=== PATIENT | male | born 1975 | race Caucasian/White ===

== ENCOUNTER → 2022-03-19 08:56 | Outpatient (CLI) | payer BC, SELFPAY ==
--- NOTE | 2022-03-19 09:07 | DI.RAD_ITS ---
Exam(s) XR KNEE RT 3V AP,LAT,NILSA EXAM: XR KNEE RT 3V AP,LAT,NILSA CLINICAL HISTORY: RT KNEE PAIN, M25.561. TECHNIQUE: 2D digital imaging was performed. Three views. COMPARISON: No exams were available for comparison FINDINGS: BONES: No acute fracture is present. No bony destructive lesion is seen. JOINTS: Joint spaces are maintained. The knee is normally aligned. A small joint effusion is seen. SOFT TISSUE: Normal. IMPRESSION: Question of small joint effusion. DATA REPOSITORY: RADIATION DOSE DELIVERED:
--- OUTSIDE RECORDS SUMMARY | 2022-03-19 09:13 | XMS_ITS | Encounter Summary ---
:1975 Author Organization [facility] Address [address] [place] [address] Care Team Providers Name Role Phone Unknown, Provider Primary Care Provider Encounter Details Date Type Department Care Team Description 12/16/[address] [facility] Outr Resulting Lab, Pathology & Laboratory Provider [facility] [address] [place] [address] Social History Tobacco Use Types Packs/Day Years Used Date Smoking Tobacco: Never Assessed Sex Assigned at Date Recorded Not on file documented as of this encounter Plan of Treatment Not on filedocumented as of this encounter Procedures Procedure Name Priority Date/Time Associated Diagnosis Comme nts COVID-19 TEST [facility] Today 12/16/2019 9:43 EDT LAB PCR COVID-19 TESTING Routine 12/16/2019 9:43 EDT Resu lts for this procedure are i n the results section. documented in this encounter Results COVID-19 TEST [facility] LAB PCR (12/16/2019 9:43 EDT) Specimen Anatomical Location Collection Method Collection Time Received Time (Source) / Laterality / Volume Swab ENTIRE NASOPHARYNX 12/16/2019 9:43 2019 / Unknown EDT 14:53 EDT Provider Outr Resulting Lab MICROBIOLOGY - GENERAL ORD ERABLES Performing Organization Address City/State/ZIP Code Phon e Number [facility] [address] [place] [address] SERVICES COVID-19 TESTING (12/16/2019 9:43 EDT) Analysis Performed At Patho logist Time Signature COVID-19 Negative Negative 12/16/2019 [facility] rt-PCR Result 19:26 EDT [facility] Comment: This test has not been FDA cleared or ap proved. This test has been authorized by FDA under an EUA for use by authorized laboratories. This test has been authorized only for detection of nucleic acid fro m 2019-nCoV, not for any other viruses o r pathogens. This test is only authorized for the duration of the declaration that circumstances exist justifying the authorization of emergency use of in vitro d iagnostic tests for detection and/or gonzales gnosis of 2019-nCoV under section 564(b)(1) of Act, 21 U.S.C ?? 360bbb-3(b) (1), unless the authorization is terminated or revoked sooner. Negative results do not preclude 2019-nC oV infection and should not be used as the sole basis for treatment or other patient management decisions. Negative results must be combined with clinical observa tions, patient history, and epidemiologi lamar information. Performed on the [employer] Fusion instrument Performing Lab [place] [facility] 12/16/2019 19:[address] [facility] SERVICES Specimen Anatomical Collection Method Collection Time Receive d Time (Source) Location / / Volume Laterality Swab 12/16/2019 9:43 12/16/2019 EDT 14:53 EDT Provider Outr Resulting Lab MICROBIOLOGY - GENERAL ORD ERABLES Performing Organization Address City/State/ZIP Code Phon e Number [facility] [address] [place] [address] SERVICES documented in this encounter Visit Diagnoses Not on filedocumented in this encounter Care Teams Drug Abuse Counselor Relationship Specialty Start Date End Date Unknown, Provider, PCP - General 09/30/17 documented as of this encounter
--- OUTSIDE RECORDS SUMMARY | 2022-03-19 09:13 | XMS_ITS | Encounter Summary ---
:1975 Author Organization [facility] Address [address] [place] [address] Care Team Providers Name Role Phone Stew Delgado Primary Care Provider Reason for Visit Reason Comments Dermatitis Consultation (Routine) - Closed Specialty Diagnoses / Procedures Referred By Contact Refer red To Contact Dermatology Diagnoses rash bilateral lower extremities inflammatory dermatitis Stew Delgado PA [facility] Dermatology [address] [place] [address] [address] [place] [address] [place] [address] Fax: Referral ID Status Reason Start Date Expiration Date Visits V isits Requested Authorized [id number] Closed Consult, 12/11/2017 12/11/2018 1 1 [facility] Encounter Details Date Type Department Care Team Description 01/06/2018 Office Visit Dermatology at [facility] Moses Grimaldo MD Venous stasis [address] [facility] dermatitis, [address] [place] [address] HEAT laterality [phone] RD-DERMATOLOGY [place] [address] Social History Tobacco Use Types Packs/Day Years Used Date Smoking Tobacco: Former Smokeless Tobacco: Never Sex Assigned at Date Recorded Not on file documented as of this encounter Patient Instructions Patient InstructionsLisa Spann LPN - 01/06/2018 2:45 PM EDT Gentle Skin care Recommendations: - Only wash the dirty areas of your body with soap (armpits, groin, face, feet). Do not scrub with awashcloth, loofah or sponge, only use your hands. - Recommended soaps: Vanicream bar soap, CeraVe hydrating cleanser,Dove soap for sensitive skin. - It is important to moisturize daily. Apply a bland moisturizer to your whole body immediately after showering when your skin is still damp. - Recommended moisturizers: CeraVe cream, Vanicream moisturizer, Aveeno Eczema Therapy Cream or Eczema Therapy [place]. - Recommend a Free and Clear detergent such as ALL, Tide, 7th Generation. - Do not use dryer sheets or fabric softeners. Compression stockings 20-30 mhg daily documented in this encounter Progress Notes Moses Grimaldo - 01/06/2018 2:45 PM EDT Images from the original note were not included. DERMATOLOGY - NEW PATIENT NOTE Date of service: 01/06/2018 Adrian Feliciano : 1975, 42 y.o. Chief Complaint: Chief Complaint Patient presents with ??? Dermatitis HPI: Adrian Feliciano is a 42 y.o. male with consultation requested by Stew Delgado with the following concerns: He is here today with a rash on his lower extremities. He has been treating the area with Triamcinolone. He feels that it has improved over the last few weeks with the topical steroid. He does not moisturize, has not noticed any particular leg swelling. Itching is worse during the day, and when it is cold, not applying anything to the legs apart from the steroid. The rash was biopsied by PCP, demonstrating subacute spongiotic dermatitis with underlying prominent stasis dermatitis Relevant Skin History: - Okay to leave detailed message with results? yes - Skin cancer (including type): no Family History: Melanoma: no Relevant Social History: - - 2 boys. Non smoker since 2005 Meds: No current outpatient prescriptions on file. No current facility-administered medications for this visit. Allergies: Allergies not on file Review of Systems: - General: Feels well. - Skin: No other skin concerns. Examination: - Constitutional: Patient was alert, well-appearing and in no noticeable distress. - Skin: Skin examination of the bilateral lower extremities. Diagnosis/Skin findings/Assessment/Plan: 1. Venous Stasis Dermatitis - scaly pink plaques on anterior shins. MARKEL testing of the skin scraping was negative for fungal element -Rx: Augmented Betamethasone Dipropionate 0.05% ointment BID to affected areas of the shins. - Discussed risks of prolonged topical corticosteroid use including atrophy, striae, hypopigmentation, tachyphylaxsis. Instructed to avoid face, intertriginous, or other thin-skinned highly penetrable areas (eg, the perineum, axillae). - Compression stockings encouraged daily. Script given. RTC: In 2-3 months for f/u venous stasis, or sooner if needed. The following photos were obtained with patient consent: Note initiated by LISA SPANN LPN. I performed the above scribed service and agree with the accuracy of the documentation in this encounter. Reviewed and signed by Moses Grimaldo MD Resident in Dermatology [facility] Patient seen in conjunction with staff teacher emotionally impaired: Katie Huntley MD Section of Dermatology [facility] Katie Huntley MD - 01/06/2018 2:45 PM EDT I directly supervised Dr. Moses Grimaldo during this office visit. Dr. Grimaldo presented the history and physical exam to me. I then saw and examined this patient with Dr. Grimaldo. We reviewed the history and pertinent details and I confirmed the physical findings. I agree with the details of the history and physical exam as documented in Dr. Grimaldo's note. KATIE HUNTLEY MD Staff Physician documented in this encounter Plan of Treatment Not on filedocumented as of this encounter Visit Diagnoses Diagnosis Venous stasis dermatitis, unspecified la terality documented in this encounter Care Teams Oral And Maxillofacial Surgery Relationship Specialty Start Date End Date Stew Delgado PA PCP - General General Internal Medicine 01/06/[address] [place] [address] [place] [phone] documented as of this encounter
--- OUTSIDE RECORDS SUMMARY | 2022-03-19 09:13 | XMS_ITS | Clinical Summary ---
:1975 Author Organization [facility] [place] [address] Care Team Providers Name Role Phone Stew Delgado Primary Care Provider Medications Medication Sig Dispensed Refills Start Date End Date Status sertraline (ZOLOFT) 50 0 01/01/2018 Active mg Tablet triamcinolone (KENALOG) 0 09/30/2017 Active 0.1 % Ointment augmented betamethasone Apply to areas 50 g 1 01/06/2018 Active dipropionate of the rash on (DIPROLENE-AF) 0.05 % the legs twice Ointment daily for 14 days, take one week off and repeat as needed for itching. Social History Tobacco Use Types Packs/Day Years Used Date Smoking Tobacco: Former Smokeless Tobacco: Never Sex Assigned at Date Recorded Not on file Plan of Treatment Health Maintenance Due Date Last Done Comments Covid-19 Vaccine (#1) 03/23/1975 HIV screen 1992 Hepatitis C Screening 1992 Lipid Screening 1992 Tdap adult 1993 Tetanus vaccine 1993 Colonoscopy 09/21/2019 Influenza (Flu) vaccine (1 of - Influenza standard 01/02/2022 series) Care Teams Temporary Receptionist Relationship Specialty Start Date End Date Stew Delgado PA PCP - General General Internal Medicine 01/06/[address] [place] [address] [place] [phone]
--- OUTSIDE RECORDS SUMMARY | 2022-03-19 09:13 | XMS_ITS | Clinical Summary ---
:1975 Author Organization [facility] Address [address] [place] [address] Care Team Providers Name Role Phone Unknown, Provider Primary Care Provider Social History Tobacco Use Types Packs/Day Years Used Date Smoking Tobacco: Never Assessed Sex Assigned at Date Recorded Not on file Plan of Treatment Health Maintenance Due Date Last Done Comments Hepatitis C Screen 1975 COVID-19 Vaccine (#1) 03/23/1975 Care Teams Music Ministries Director Relationship Specialty Start Date End Date Unknown, Provider, PCP - General 09/30/17
--- OUTSIDE RECORDS SUMMARY | 2022-03-19 09:13 | XMS_ITS | Encounter Summary ---
:1975 Author Organization [facility] Address [address] [place] [address] Care Team Providers Name Role Phone Unknown, Provider Primary Care Provider Encounter Details Date Type Department Care Team Description 09/30/2017 Results Only [facility] Unknown, Provider, (Wo rk) Social History Tobacco Use Types Packs/Day Years Used Date Smoking Tobacco: Never Assessed Sex Assigned at Date Recorded Not on file documented as of this encounter Plan of Treatment Not on filedocumented as of this encounter Procedures Procedure Name Priority Date/Time Associated Diagnosis Comme nts SURGICAL PATHOLOGY Routine 09/30/2017 9:33 EDT Re sults for this procedure are i n the results section. documented in this encounter Results SURGICAL PATHOLOGY (09/30/2017 9:33 EDT) Component Value Ref Test Analysis Performed At [facility] Range Method Time Signature Pathology SURGICAL PATHOLOGY REPORT [facility] MEDICAL Report: Reports generated via electronic interface contain origina l data; CENTER however they are lacking the format of the original report. LABORATORY Caution should be taken when reading/interpreting unformat hemant reports. SERVICES Name: ? ADRIAN MONROE ? Accession #: ? [id number] ? : ? 1975 (Age: [age]) ??M ? Collect Date: ? 09/30/2017 ? Location: ? [facility] ? Receive Date: ? 09/30/2017 ? Provider: STEW EAGLE MD Copy to: ? Final Pathologic Diagnosis: SKIN OF LEG, ANTERIOR HURLEY, PUNCH BIOPSY: - Subacute spongiotic dermatitis in a background of promin ent venous stasis change. ??See microscopic and comment. Comment: The histologic findings show a mixed pic ture of epidermal reactive change with focal excoriation, mild epidermal hyperplasia, and mil d subacute spongiosis. The dermis shows venous stasis change with small vessel proliferation and red cell extravasation. ??Defini tive features of psoriasis are not identified. ??The findings are best interpreted as prominent venous stasis shaan nge with mild superimposed eczematous dermatitis. ??Clinical correlation i s recommended. Mucker Operator slides of this case were reviewed at intradep artmental consultation conference. ??(Dr. Almonte)/[facility] Microscopic Description: Sections reveal an irregular ly acanthotic epidermis with overlying parakeratosis and serum crust. ??Focal ulceration is noted. ??The ep idermis shows reactive change and mild spongiosis. ??Within the superfi cial dermis, there is a small vessel proliferation with some red cell extravasation and a mixed inflammatory infiltrate. ??Rare eosinophils are noted within the in terstitium. ??The deep dermis and subcutaneous tiss ue appear unremarkable. Multiple levels are obtained and a PAS stained section is performed and is negative for fungal organisms. (Dr. Almonte)/[facility] Document reviewed and electronically signed by: LEIDA ALMONTE MD Report ??Date: 10/05/2017 11:58 By the signature above, the attending physician certifies th at he/she has personally conducted a gross and/or microscopic examin ation of the described specimens and rendered or confirmed the above diagnosis. Specimen(s) Received: Not listed Clinical History: Slightly raised erythematous plaque over anterior thins bila terally, non-specific dermatitis Gross Description: ? Received in formalin labelled with proper patient identification (initials L, A) and not otherwise spec ified is a punch biopsy of hernandez-white skin (0.4 cm in diameter and 0.3 cm in thickness). Bisected and submitted in 1. Mihrab Ali 10/01/2017 10:11 AM End of Report Specimen Anatomical Collection Method Collection Time Receive d Time (Source) Location / / Volume Laterality 09/30/2017 9:33 09/30/2017 9 :33 EDT EDT Stew Eagle MD PATHOLOGY ORDERABLES Performing Organization Address City/State/ZIP Code Phon e Number [facility] [address] [place] [phone] SERVICES documented in this encounter Visit Diagnoses Not on filedocumented in this encounter Care Teams Airport Driver Relationship Specialty Start Date End Date Unknown, Provider, PCP - General 09/30/17 documented as of this encounter
== END ==
PROVIDERS: Visit Provider Physician Assistant
DX: M25.561 Pain in right knee (principal)
CPT/HCPCS: 73562

== ENCOUNTER 2022-08-06 11:26 | Day surgery (SDC) | payer BC, SELFPAY ==
[2022-08-06] VITALS (9 sets, daily range): BP systolic 83–146; BP diastolic 50–96; PULSE 83–89; RESP 14–126; TEMP 36.5–37; O2SAT 91–96; BMI 38.1
--- NOTE | 2022-08-06 12:13 | W.PREOPHP ---
Assessment and Plan Assessment and plan (1) Tear of medial meniscus of right knee: Status: Acute Assessment and plan: Adrian is a 46-year-old who has had ongoing pain about the right knee. This medial based pain has not responded to other nonoperative options an MRI confirmed to be meniscal tear. He does have some very mild arthritic changes in the medial side of the knee. However, given his young age and persistence of symptoms I have offered arthroscopic intervention. I reviewed this once again with him and his . I discussed the technical features of the case. I discussed potential risk to include bleeding, infection, pain, stiffness, worsening arthritis, retear, incomplete resection, blood clot, need for repeat procedures. Despite these risks, he elects to proceed. History of Present Illness History of Present Illness Chief Complaint: Right Medial Meniscus Tear Narrative: Adrian is an active 46-year-old who has had ongoing pain about the right knee. His pain is mostly in the medial aspect the knee. I saw him back in May with an evaluation of the right knee which was indicative of a medial meniscal tear. He underwent MRI which did reveal a displacement of meniscus tear. I called him with results of this MRI and given the failure of other nonoperative options he desired to proceed with arthroscopic intervention. He is here today for that procedure. He denies any changes to his health history. No recent sick contacts. No chest pain or shortness of breath. 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 Prehypertension Scrotal mass pt denies this, has mass in neck not scrotum Umbilical hernia Social History Smoking/Tobacco Use Status: Former Tobacco Use Quit Date: 05/04/05 Smoking risk assessment performed?: Yes Drug use: Daily Substance use type: marijuana Do you feel safe at home: Yes Do you feel safe in your relationship?: Yes Meds Allergies and Home Medications Allergies Allergy/AdvReac Type Severity Reaction Status Date / Time No Known Allergies Allergy Verified 08/06/22 12:00 Home Medications Medication Instructions Recorded Confirmed Type fluticasone propionate 50 1 spray intranasal BID 03/25/22 08/06/22 History mcg/actuation nasal spray,suspension (Children's Flonase Allergy Relief) venlafaxine 150 mg 150 mg PO DAILY 03/25/22 08/06/22 History capsule,extended release 24 hr Exam Const General: cooperative, healthy appearing, comfortable and no acute distress Resp Auscultation: clear to auscultation bilaterally Cardio Rate: regular rate Rhythm: regular rhythm Results Imaging Imaging Studies: MRI of the right knee was reviewed prior to this visit and once again discussed with Adrian. This shows some areas of mild chondromalacia with a very small focal area of bone marrow edema. However it is also associated with a complex medial meniscal tear with some extravasation of an inferior leaflet. ACL PCL is intact. No cartilage abnormalities in the lateral compartment or the patellofemoral space.
--- NOTE | 2022-08-06 12:27 | W.ANESPRE ---
General Info Date of Service Date Performed: 08/06/22 Height: 5 ft 6 in Weight: 107.2 kg Body Mass Index (BMI): 38.1 Surgical Procedure: Operation Date: 08/06/22 13:55 Proposed Procedure Side Surgeon p Knee Arthroscopy w/Partial Medial Menisectomy Right Paddy Phoenix MD Meds Allergies and Home Medications Allergies Allergy/AdvReac Type Severity Reaction Status Date / Time No Known Allergies Allergy Verified 08/06/22 12:00 Home Medication Medication Instructions Recorded fluticasone propionate 50 1 spray intranasal BID 03/25/22 mcg/actuation nasal spray,suspension (Children's Flonase Allergy Relief) venlafaxine 150 mg 150 mg PO DAILY 03/25/22 capsule,extended release 24 hr acetaminophen 500 mg tablet 1,000 mg PO TID #90 tabs 08/06/22 hydrocodone 5 mg-acetaminophen 325 1 tab PO Q6H PRN pain #12 tabs 08/06/22 mg tablet ibuprofen 600 mg tablet 600 mg PO TID PRN pain #90 tabs 08/06/22 Current Visit Medications: Current Medications Generic Name Dose Route Start Last Admin Trade Name Freq PRN Reason Stop Dose Admin Ringer's Solution 1,000 mls @ 80 mls/hr 08/06/22 06:00 IV 09/04/22 23:59 INFUSION RIAZ Cefazolin Sodium/Dextrose 2 gm in 50 mls @ 100 mls/hr 08/06/22 06:00 Ancef Duplex IVPB 09/04/22 23:59 PREOP RIAZ IV Miscellaneous Supplies 1 each 08/06/22 06:00 Iv Access IV 09/04/22 23:59 DIRECTED RIAZ Sodium Chloride 0 ml 08/06/22 06:00 Normal Saline Flush 10 Ml Syr IV 09/04/22 23:59 PRN PRN Sodium Chloride 0 ml 08/06/22 06:00 Normal Saline 10 Ml Vial IJ 09/04/22 23:59 DIRECTED PRN Sterile Water 0 ml 08/06/22 06:00 Water,Injection,Sterile 10 Ml Vial IJ 09/04/22 23:59 DIRECTED PRN PFSH Active Problems Active Problems: Problem Status Onset Code Prediabetes R73.03 Internal derangement of right knee M23.91 Tear of medial meniscus of right knee S83.241A Medical History Medical History Depression Impotence Neck mass pt reports 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 Prehypertension Scrotal mass pt denies this, has mass in neck not scrotum Umbilical hernia Tobacco Smoking/Tobacco Use Status: Former Tobacco Use Alcohol Alcohol Intake: current Alcohol intake frequency: 3 or more drinks per day Alcohol type: beer Substance Use Substance use: Daily Substance use type: marijuana Details: last alcohol consumption t-1 last marijuana use 08/06/22 inhaled Vital Signs and Lab Results Vital Signs Most Recent Vital Signs in EMR: Most Recent Vital Signs Temp Pulse Resp BP Pulse Ox 37.0 C 104 H 18 146/96 H 96 08/06/22 12:02 08/06/22 12:02 08/06/22 12:02 08/06/22 12:02 08/06/22 12:02 Lab Results Blood Type / Crossmatch: No Data to Display Complete Blood Count: No Data to Display Complete Metabolic Panel: No Data to Display Liver Function Panel: No Data to Display Coagulation Panel: No Data to Display Cardiac Panel: No Data to Display Arterial Blood Gas: No Data to Display Venous Blood Gas: No Data to Display Pancreas Panel: No Data to Display Thyroid Panel: No Data to Display Infectious Disease: No Data to Display Blood Cultures: No Data to Display Toxicology Panel: No Data to Display Anesthesia Assessment and Plan Anesthesia History Personal History: No History of Anesthesia Complications Family History: No Family History of Anesthesia Complications Exercise Tolerance Exercise Tolerance: Metabolic Equivalents>4 Cardiac & Pulmonary Exam Cardiac Exam: Normal S1/S2 Heart Sounds Pulmonary Exam: Clear Bilateral Breath Sounds Implantable Cardiac Device Does patient have a Pacemaker or an ICD?: No Airway Exam Known Difficult Airway: No Mallampati Class: 2 Mouth Opening: Normal (> 3cm) Thyromental Distance: Greater than 3 cm Neck Range of Motion: Full ROM Neck Circumference: Thick Teeth Condition: Normal Dentition ASA Classification ASA Score: ASA 2 Emergency Case?: No NPO Status NPO Status: NPO Clears >2 hours, Solids >8 hours Anesthesia Plan Resuscitation Status: Full Code Anesthesia Technique: General Anesthesia Airway Planned: LMA Monitors Used: Standard Monitors
[2022-08-06] MEDS: Lactated Ringers 1,000 ML 80 ML IV (12:38)
--- NOTE | 2022-08-06 12:39 | W.PM.DSUDISC ---
Date of service: 08/06/22 Time of Service: 12:39 Discharge Plan Disposition Patient Disposition: Home Condition: Good Discharge Details Reason For Visit: R knee arthroscopy Attending Provider: Paddy Phoenix Primary Care Provider: Stew Delgado Home Meds and New Rx's Prescriptions: New hydrocodone-acetaminophen 5-325 mg tablet 1 tab PO Q6H PRN (Reason: pain) Qty: 12 0RF acetaminophen 500 mg tablet 1,000 mg PO TID Qty: 90 0RF ibuprofen 600 mg tablet 600 mg PO TID PRN (Reason: pain) Qty: 90 0RF Continued fluticasone propionate [Children's Flonase Allergy Rlf] 50 mcg/actuation spray,suspension 1 spray intranasal BID Rx Instructions: administer into each nostril venlafaxine 150 mg capsule,extended release 24hr 150 mg PO DAILY Discharge Instructions Stand Alone Forms: [place] Knee Arthroscopy Equipment/Supplies: Partial Weight Bearing Crutches Activity:: Activity as Tolerated Remove Dressings/Wound Care:: 72 hours Shower/Bathe:: 72 hours Diet:: As Tolerated Discharge Orders Discharge Orders: Discharge Order (Routine); Ordered 08/06/22 Ordered By: Mainor Guzman DS: Diagnosis Discharge Diagnosis (1) Tear of medial meniscus of right knee: Status: Acute
[2022-08-06] MEDS: ceFAZolin 2 GM/50 ML BAG IVPB (13:09)
[2022-08-06] MEDS: Bupivacaine 0.5% Pres-Free 30 ML VIAL (13:52)
[2022-08-06] MEDS: EPINEPHrine 30 MG/30 ML VIAL (13:53)
--- NOTE | 2022-08-06 14:27 | W.ANESPOSTOP ---
Postoperative Evaluation Date, Time and Location Date Performed: 08/06/22 Time Performed: 14:27 Patient Location: PACU Vital Signs Most Recent Imported Vital Signs: Most Recent Vital Signs Temp Pulse Resp BP Pulse Ox 36.6 C 89 18 118/75 93 08/06/22 14:25 08/06/22 14:25 08/06/22 14:25 08/06/22 14:25 08/06/22 14:25 Pain Score Most Recent Pain Score: Most Recent Pain Score Pain Level 0 08/06/22 14:25 Assessment Mental Status: Arousable with meaningful communication Airway and Respiratory Function: Patent airway with normal (patient baseline) respiratory exam Cardiovascular Function: Hemodynamically Stable Hydration Status: Adequately Hydrated Nausea & Vomiting: No Nausea or Vomiting Pain: Pt. Denies Any Pain Peripheral Nerve Block: Patient did not receive a nerve block
[2022-08-06] MEDS: Albuterol 2.5 MG/3 ML INH SOLN VIAL UPD (15:32)
--- NOTE | 2022-08-06 17:04 | W.PM.OP ---
Date of service: 08/06/22 Time of Service: 13:45 Operative Note Operative Note DATE OF PROCEDURE: 08/06/22 PRE-OP DIAGNOSIS: Right knee medial meniscal tear, medial chondromalacia POST-OP DIAGNOSIS: same (Complex medial meniscal tear with loose fragments, unstable medial femoral cartilage flap) PROCEDURE: Right knee arthroscopic partial medial meniscectomy, medial femoral chondroplasty SURGEON: Paddy Phoenix ANESTHESIA TYPE: General LMA/ETT Refer to Anesthesia Record ESTIMATED BLOOD LOSS: 0 PATHOLOGY: none sent COMPLICATIONS: None Patient was transported to: PACU Patient's condition: stable Indications: I have seen Adrian in clinic for symptoms of a meniscus tear. This was confirmed based on MRI and exam findings. Nonoperative measures were exhausted but disability and pain persisted. I discussed knee arthroscopy with meniscal intervention with the patient. I reviewed the risks of the procedure to include, but not limited to, bleeding, infection, pain, stiffness, damage to nerves or vessels, recurrence, blood clot. Despite these risks, the patient elected to proceed. Findings: A diagnostic arthroscopy was performed with the following findings: Suprapatellar Pouch: No significant inflammation, No loose bodies Medial Compartment: Complex medial meniscal tear with multiple loose fragments, Intact meniscal root, medial cartilage flap with 2 to 3 mm of unstable edge, No loose bodies Notch: ACL and PCL were intact Lateral Compartment: No meniscal tear, Intact meniscal root, No significant chondromalacia or signs of arthritis, No loose bodies Patellofemoral Compartment: No significant chondromalacia, No apparent patellar maltracking Procedure Description: Adrian was greeted in the preoperative holding area where the correct side was identified and marked. The consent was reviewed with the patient and signed. The history and physical was updated. All questions were answered. He was taken back to the operating room. The patient was placed into the supine position on the operating room table. A nonsterile tourniquet was placed high onto the leg but not used. All bony prominences were well padded. Prophylactic antibiotics in the form of Cefazolin were administered. The right leg was then prepped with Chloraprep and draped in a standard fashion with stockinette and extremity drape. A timeout to confirm correct identity, side and site, procedure, allergies, anesthesia, and medical concerns was performed. The leg was placed into a pneumatic leg hickey, SPIDER2. A standard lateral portal was made at the lateral border of the patella tendon in line with the inferior pole of the patella, soft spot. The skin and deep tissue was incised sharply and the blunt trochar was inserted atraumatically. A diagnostic arthroscopy was performed and the findings are listed above. The suprapatellar pouch had no significant inflammatory change. The patellofemoral articulation showed no articular damage as well as good tracking. The lateral gutter had no loose bodies and the medial gutter had no loose bodies. The knee was brought into some valgus stress in extension to open the medial compartment. A medial portal was made, localized by a spinal needle. The portal was created with an #11 blade through skin and capsule under direct visualization avoiding any meniscal injury. A probe was then inserted into the medial compartment. The medial compartment was fully inspected. The chondral surface of the tibia showed no significant chondromalacia and the surface of the femur showed no significant chondromalacia but there was an apparent cartilage flap seen over the medial aspect of the femur slightly more posteriorly than anteriorly. This was probed and showed 2 to 3 mm of an unstable edge. The medial meniscus had obvious tearing with loose fragments. This had multiple fragments displaced from the body through the posterior horn and towards the root. The root was stable. After evaluation, the meniscus was debrided down to a stable base using a series of biters and arthroscopic rosanna. It was probed afterwards to confirm that the tear had been removed and the meniscus was stable. Cartilage surfaces were debrided of any flaps, leaving any intact fibers. The notch was then inspected which showed an intact ACL and an intact PCL. The leg was then brought into a figure of 4 position. The lateral compartment was fully inspected with the arthroscope and a probe. The chondral surface of the lateral femur showed no significant chondromalacia. The chondral surface of the lateral tibia showed no significant chondromalacia. The lateral meniscus had no meniscal tear. The arthroscope was brought back into the suprapatellar pouch and the leg was in full extension. The knee was thoroughly irrigated with the arthroscopic fluid on high flow and pressure. Inflow was stopped and excess fluid was removed. The wounds were closed with 4-0 Nylon. They were dressed with Xeroform, 4x4 gauze, ABD pad, Kerlix and an EMILI wrap. A cryo-cuff was applied. The patient tolerated the procedure well and was returned to the Same Day Surgery area in a stable condition suffering no known complication.
== END 2022-08-06 16:00 | disposition home or self-care (01) ==
PROVIDERS: PCP Physician Assistant; Visit Provider Student in an Organized Health Care Education/Training Program
PROC: (CPT 29870; principal; 2022-08-06 13:45)
DX: S83.241A Other tear of medial meniscus, current injury, right knee, initial encounter (principal); M23.41 Loose body in knee, right knee; X58.XXXA Exposure to other specified factors, initial encounter
CPT/HCPCS: 29881; J0690; J1100; J2405; J2704; J3010; J7613

== ENCOUNTER 2023-02-23 08:13 | Day surgery (SDC) | payer BC, SELFPAY ==
--- NOTE | 2023-02-22 19:32 | W.PM.DSUDISC ---
Date of service: 02/23/23 Time of Service: 10:42 Discharge Plan Disposition Patient Disposition: Home Condition: Good Discharge Details Reason For Visit: Screening colonoscopy Attending Provider: Javed Yañez Primary Care Provider: Stew Delgado Home Meds and New Rx's Prescriptions: Continued fluticasone propionate [Children's Flonase Allergy Rlf] 50 mcg/actuation spray,suspension 1 spray intranasal BID Rx Instructions: administer into each nostril venlafaxine 150 mg capsule,extended release 24hr 150 mg PO DAILY acetaminophen 500 mg tablet 1,000 mg PO TID Qty: 90 0RF ibuprofen 600 mg tablet 600 mg PO TID PRN (Reason: pain) Qty: 90 0RF Discontinued bisacodyl [Dulcolax (bisacodyl)] 5 mg tablet,delayed release (DR/EC) 5 mg PO ONCE Qty: 4 0RF Rx Instructions: Take per colonoscopy instructions provided by ordering providers office polyethylene glycol 3350 17 gram/dose powder 17 g PO ONCE Qty: 238 0RF Rx Instructions: Take per colonoscopy instructions provided by ordering providers office Discharge Instructions Additional Instructions: James, we were able to perform your colonoscopy today without any difficulty. I found and removed 4 discrete polyps. 2 of these were in your rectum, and the other 2 were in other portions of your large intestine. In addition to these findings, there are 2 other areas of abnormality within your large intestine. Honestly, I am not sure what is causing it. Some of the features seem consistent with lipoma, which is a benign (or nondangerous) condition. Other features are more consistent with chronic changes, or perhaps a polyposis syndrome. The 4 specific polyps that I removed will all be tested for better understanding of what is causing them. As soon as I get that information, I will share it with you. However, regardless of those pathology results, I do think that you will benefit from referral down to [facility] to meet with her instructional materials director for a second opinion. Unfortunately, I suspect that they will want to repeat your colonoscopy. I am sorry to put you through that discomfort, but I want to make sure we figure out the exact diagnosis, in order to get you all potential treatment options. I will place the referral to [facility] today, and asked that they schedule you as soon as possible. Please be on the look out for a call from them over the next few days to schedule the appointment. If you do not hear from them by the end of this week, please let me know. 1. If tolerated, consume a soft, low fiber diet for 1-2 days. 2[address] Do not drive, drink alcohol, operate machinery, make critical decisions, or do activities that require coordination or balance for 24 hours. 3. Because air was put into your colon during the procedure, expelling air from your rectum (passing gas or farting) is normal. 4. You may not have a bowel movement for 1-3 days because of the colonoscopy prep. This is normal. 5. Go directly to the emergency room if you notice any of the following: Develop chills (warm to touch), or if you have a thermometer and your temperature is above 101 Difficulty breathing or difficultly swallowing Persistent vomiting Severe abdominal pain, other than gas cramps Severe chest pain Black, tarry stools Any bleeding ? exceeding one tablespoon 6. Call your physician if the site where your intravenous was started becomes red, swollen, painful, and warm to touch. 7. Your physician has reviewed your pre-procedure medications. Please continue to take those medications as previously ordered. You will be given specific information/education regarding any changes to your medications before leaving. Stand Alone Forms: Anesthesia Discharge Inst., Darrius Mckeon (DSU) Activity:: Activity as Tolerated Diet:: As Tolerated Discharge Orders Discharge Orders: Discharge Order (Routine); Ordered 02/22/23 Ordered By: Javed Yañez DS: Diagnosis Discharge Diagnosis (1) Screen for colon cancer: Status: Acute Asessment and Plan: Follow-up on polypectomy results with referral to [facility]
--- NOTE | 2023-02-22 19:44 | COLE_ITS ---
Date of service: 02/23/23 Time of Service: 10:45 Colonoscopy Report Date of procedure: 02/23/23 Pre-op diagnosis general: Screening colonoscopy Post-op diagnosis procedure note: other (Colon and rectal polyps) Procedure: Colonoscopy with polypectomy Surgeon: Javed Yañez Anesthesia Type: General:No Airway Estimated blood loss (mL): 10 Pathology: other (Rectal polyps #1 and 2, ascending colon polyp, polyp from 65 cm) Complications: None Disposition: same day Indications: Adrian is 47 years old and he is here for his first screening colonoscopy Prep: Miralax/Dulcolax Procedure Start Time: 09:51 Procedure End Time: 10:19 Retraction Time: 18 Findings: 0.25 cm rectal polyp, 4 cm rectal polyp, 0.75 cm polyp in the ascending colon, 0.5 cm polyp at 65 cm from the anus. Two abnormal sections of colon. One extending from about 40 cm to 55 cm, 1 extending from about 70 cm to 80 cm Procedure Description: After the induction of monitored anesthetic care, and with the patient in left lateral decubitus position, I began by performing an external anorectal exam.? Perineum and skin were normal, as was the anal verge.? There was no evidence of external hemorrhoids.? Next, I performed a digital rectal exam.? I did not appreciate any abnormal findings.? Next, I advanced a colonoscope into the rectal vault.? I performed retroflexion.? This appeared normal.? I returned the scope to the forward position, and several centimeters up from the anal verge was a large pedunculated, erythematous and slightly friable rectal polyp. I removed this with energized snare polypectomy. There was minimal bleeding. Given the appearance of the lesion, I did tattoo the sub-mucosa. Several centimeters away was a 0.25 cm sessile polyp. I removed this with snare polypectomy as well. Using insufflation, I then advanced the colonoscope beyond the rectal folds and into the sigmoid colon before advancing towards the cecum.? Approximately 40 cm from the anal verge was an abnormal section of colon. There were multiple areas of tissue that appeared consistent with polyps, as well as some pseudopolyps. However, the pseudopolyp appearance was quite large. The overlying mucosa was generally normal-appearing, and gave almost the appearance of a lipoma, however, the surrounded the entirety of the colon for approximately 15 cm of the length. This pathologic segment extended from about 40 cm to about 55 cm from the anal verge. There was then a small section of normal-appearing colon before another abnormal portion. Again, there were appearance of almost submucosal lumps ranging in size from about 0.75 cm to 2 to 3 cm. This section was a bit more linear. This extended up to the area of the splenic flexure which appeared normal.? The scope was advanced to and noted to be in the cecum by identification of the ileocecal valve and appendiceal orifice.? I then began withdrawing the colonoscope using repeated irrigation as necessary for full evaluation of the colonic mucosa. ?Within the ascending colon was a 0.75 cm pedunculated polyp. This was removed with energized snare polypectomy. The hepatic flexure and transverse colon, as well as the splenic flexure appeared normal. Again noted was the abnormal portion of colon from about 70 to 80 cm. A separate discrete polyp was found at 65 cm within an area of normal-appearing colonic mucosa. This polyp was about 0.5 cm and pedunculated. This was also removed with energized snare polypectomy. Again, the camera was brought through the abnormal portion of colon beginning around 55 cm from the anal verge. Although there was some portions of this tissue that did appear consistent with traditional adenomatous polyps, these were not removed because of the surrounding features. Once the scope was withdrawn to the level of the rectum, great care was taken to examine portions of the rectal folds.? No other abnormalities were detected. Finally, the scope was withdrawn and the patient was brought to the same-day surgery recovery unit as the anesthetic wore off. ? The findings and instructions were shared with the patient prior to discharge.
[2023-02-23 08:42] VITALS: BP 127/83; PULSE 88; RESP 20; TEMP 36.6; O2SAT 97
[2023-02-23] MEDS: Lactated Ringers 1,000 ML 80 ML IV (09:00)
--- NOTE | 2023-02-23 09:07 | W.ANESPRE ---
General Info Date of Service Date Performed: 02/23/23 Height: 5 ft 6 in Weight: 96.2 kg Body Mass Index (BMI): 34.2 Surgical Procedure: Operation Date: 02/23/23 10:35 Proposed Procedure Side Surgeon franklin Yañez MD Meds Allergies and Home Medications Allergies Allergy/AdvReac Type Severity Reaction Status Date / Time No Known Allergies Allergy Verified 02/23/23 08:37 Home Medication Medication Instructions Recorded fluticasone propionate 50 1 spray intranasal BID 03/25/22 mcg/actuation nasal spray,suspension (Children's Flonase Allergy Relief) venlafaxine 150 mg 150 mg PO DAILY 03/25/22 capsule,extended release 24 hr acetaminophen 500 mg tablet 1,000 mg (2 x 500 mg) PO TID #90 08/06/22 tabs ibuprofen 600 mg tablet 600 mg PO TID PRN pain #90 tabs 08/06/22 Current Visit Medications: Current Medications Generic Name Dose Route Start Last Admin Trade Name Freq PRN Reason Stop Dose Admin Hyoscyamine Sulfate 0.125 mg 02/22/23 19:45 Hyoscyamine 0.125 Mg Sl/Oral/Chew SL 03/24/23 19:44 DIRECTED PRN Ringer's Solution 1,000 mls @ 80 mls/hr 02/23/23 06:00 02/23/23 09:00 IV 03/22/23 23:59 80 mls/hr INFUSION RIAZ Administration IV Miscellaneous Supplies 1 each 02/23/23 06:00 Iv Access IV 03/22/23 23:59 DIRECTED RIAZ Ondansetron HCl 4 mg 02/22/23 19:45 Ondansetron 4 Mg/2 Ml Vial IVP 03/24/23 19:44 Q4H PRN PRN Nausea / Vomiting Sodium Chloride 0 ml 02/23/23 06:00 Normal Saline Flush 10 Ml Syr IV 03/22/23 23:59 PRN PRN Sodium Chloride 0 ml 02/23/23 06:00 Normal Saline 10 Ml Vial IJ 03/22/23 23:59 DIRECTED PRN Sterile Water 0 ml 02/23/23 06:00 Water,Injection,Sterile 10 Ml Vial IJ 03/22/23 23:59 DIRECTED PRN PFSH Active Problems Active Problems: Problem Status Onset Code Screen for colon cancer Z12.11 Status post arthroscopy of right knee Z98.890 Prediabetes R73.03 Internal derangement of right knee M23.91 Tear of medial meniscus of right knee S83.241A Medical History Medical History (Updated 02/23/23 @ 08:39 by Jojo Bernal) Family history of colon cancer sister Overweight Neck mass 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 first he has heard of this Medical History Comments:: Pt. states I'm hard to put out Surgical History Surgical History (Updated 02/23/23 @ 08:40 by Jojo Bernal) Hx of arthroscopy of knee R knee H/O wisdom tooth extraction History of appendectomy 07/2012 History of ankle surgery R ankle, tendon work 04/25/19 Tobacco Smoking/Tobacco Use Status: Former Tobacco Use Alcohol Alcohol Intake: current Alcohol intake frequency: 3 or more drinks per day Alcohol type: beer Substance Use Substance use: Daily Substance use type: marijuana Details: alcohol: t-1, 3 beers, marijuana: t, couple puffs Vital Signs and Lab Results Vital Signs Most Recent Vital Signs in EMR: Most Recent Vital Signs Temp Pulse Resp BP Pulse Ox 36.6 C 88 20 127/83 97 02/23/23 08:42 02/23/23 08:42 02/23/23 08:42 02/23/23 08:42 02/23/23 08:42 Lab Results Blood Type / Crossmatch: No Data to Display Complete Blood Count: No Data to Display Complete Metabolic Panel: No Data to Display Liver Function Panel: No Data to Display Coagulation Panel: No Data to Display Cardiac Panel: No Data to Display Arterial Blood Gas: No Data to Display Venous Blood Gas: No Data to Display Pancreas Panel: No Data to Display Thyroid Panel: No Data to Display Infectious Disease: No Data to Display Blood Cultures: No Data to Display Toxicology Panel: No Data to Display Anesthesia Assessment and Plan Anesthesia History Personal History: No History of Anesthesia Complications Family History: No Family History of Anesthesia Complications Exercise Tolerance Exercise Tolerance: Metabolic Equivalents>4 Pertinent Negatives Pertinent Negatives: No Symptoms of GERD, No Major Cardiovascular Symptoms or Complaints and No Major Pulmonary Symptoms or Complaints Cardiac & Pulmonary Exam Cardiac Exam: Normal S1/S2 Heart Sounds Pulmonary Exam: Clear Bilateral Breath Sounds Implantable Cardiac Device Does patient have a Pacemaker or an ICD?: No Airway Exam Known Difficult Airway: No Mallampati Class: 2 Mouth Opening: Normal (> 3cm) Thyromental Distance: Greater than 3 cm Neck Range of Motion: Full ROM Neck Circumference: Thick Teeth Condition: Normal Dentition ASA Classification ASA Score: ASA 2 Emergency Case?: No NPO Status NPO Status: NPO Clears >2 hours, Solids >8 hours Anesthesia Plan Resuscitation Status: Full Code Anesthesia Technique: General Anesthesia Airway Planned: Natural Airway Monitors Used: Standard Monitors
[2023-02-23 09:34] VITALS: BMI 34.2
--- NOTE | 2023-02-23 09:57 | BOWEL_PTH ---
PATIENT: Adrian Feliciano LOC: [facility] U#:[id number] AGE/SX: 47/M ROOM: RE02/23/[address]: Javed Yañez MD : [id number] BED: DIS: 02/23/2023 SPEC #: [id number] RECD: 02/23/23 12:43 STATUS: ANNELIESE REQ #: [id number] BRIGETTE: 02/23/23 09:[address]: Javed Yañez DEPT: Surgical Specimen RECD BY: Korin Mercado ENTERED: 02/23/23 12:44 SP TYPE: Bowel OTHR DR: Stew Delgado Tissues: 1 - BIOPSY BOWEL 2 - BIOPSY BOWEL 3 - BIOPSY BOWEL 4 - BIOPSY BOWEL Procedures: GROSS AND MICRO LEVEL 4 IMMUNOPEROXIDASE STAIN Comments: [id number]
[2023-02-23] MEDS: Endoscopic Tattoo 5 ML SYR IJ (10:00)
[2023-02-23 10:27] VITALS: BP 106/82; PULSE 84; RESP 18; TEMP 36.6; O2SAT 99
--- NOTE | 2023-02-23 10:51 | W.ANESPOSTOP ---
Postoperative Evaluation Date, Time and Location Date Performed: 02/23/23 Time Performed: 10:42 Patient Location: Day Surgery Unit Vital Signs Most Recent Imported Vital Signs: Most Recent Vital Signs Temp Pulse Resp BP Pulse Ox 36.6 C 84 18 106/82 99 02/23/23 10:27 02/23/23 10:27 02/23/23 10:27 02/23/23 10:27 02/23/23 10:27 Pain Score Most Recent Pain Score: Most Recent Pain Score Pain Level 0 02/23/23 10:27 Assessment Mental Status: Awake (Alert & Oriented to Patient Baseline) Airway and Respiratory Function: Patent airway with normal (patient baseline) respiratory exam Cardiovascular Function: Hemodynamically Stable Hydration Status: Adequately Hydrated Nausea & Vomiting: No Nausea or Vomiting Pain: Pt. Denies Any Pain Peripheral Nerve Block: Patient did not receive a nerve block
[2023-02-23 10:55] VITALS: BP 120/87; PULSE 89; RESP 18; TEMP 36.6; O2SAT 96
== END 2023-02-23 11:08 | disposition home or self-care (01) ==
LOC: SUR 08:14
PROVIDERS: PCP Physician Assistant; Visit Provider Surgery
PROC: 0DJD8ZZ Inspection of Lower Intestinal Tract, Via Natural or Artificial Opening Endoscopic (ICD-10-PCS; CPT 45378; principal; 2023-02-23 10:30)
DX: Z12.11 Encounter for screening for malignant neoplasm of colon (principal); C20 Malignant neoplasm of rectum; D12.4 Benign neoplasm of descending colon; D37.4 Neoplasm of uncertain behavior of colon
CPT/HCPCS: 45385; 88305; 88361; J2001

== ENCOUNTER 2024-09-14 12:25 | Emergency (ER) | payer BC, SELFPAY ==
[2024-09-14 12:29] VITALS: BP 139/87; PULSE 111; RESP 18; TEMP 36.7; O2SAT 95
[2024-09-14 12:36] VITALS: BP 139/87; PULSE 111; RESP 18; TEMP 36.7; O2SAT 98
--- NOTE | 2024-09-14 12:42 | W.ED.GENAD ---
Discharge Plan Disposition Patient Disposition: Home Condition: Stable Discharge Details Clinical Impression: Foreign body of right middle finger Primary Care Provider: Stew Delgado ED Provider: Reagan Jennings Home Meds and New Rx's Prescriptions: Continued fluticasone propionate [Children's Flonase Allergy Rlf] 50 mcg/actuation spray,suspension 1 spray intranasal BID Rx Instructions: administer into each nostril venlafaxine 150 mg capsule,extended release 24hr 150 mg PO DAILY acetaminophen 500 mg tablet 1,000 mg PO TID Qty: 90 0RF ibuprofen 600 mg tablet 600 mg PO TID PRN (Reason: pain) Qty: 90 0RF Discharge Instructions Additional Instructions: I spoke with orthopedics and they recommend soaking your finger several times a day in warm sudsy water. They can follow-up with you and they made an appointment for you on September 20 at 8:30 AM in their office. If you feel more ill or develop signs of infection such as spreading redness return to the emergency department for reevaluation. Referrals: Juan Beverly MD [ [facility] STAFF PHYSICIAN] - [facility] General Mode of arrival: ambulatory. Date/Time Provider Initiated Documentation: 09/14/24 12:37. Limitations to Documentation: no limitations. Information obtained by: patient. History of Present Illness 48 year old M presents to the emergency department with the chief complaint of right middle finger foreign body, described as moderate, Quality is described as aching, Patient started experiencing this week(s) (2) and it has been constant. No relieving factors improve symptom(s), No exacerbating factors reported . Patient notes no other symptoms.. Patient did receive the following treatments prior to arrival, none Related Data Home Medications ?Medication ?Instructions ?Recorded ?Confirmed fluticasone propionate 50 1 spray intranasal BID 03/25/22 09/14/24 mcg/actuation nasal spray,suspension (Children's Flonase Allergy Relief) venlafaxine 150 mg 150 mg PO DAILY 03/25/22 09/14/24 capsule,extended release 24 hr acetaminophen 500 mg tablet 1,000 mg (2 x 500 mg) PO TID #90 08/06/22 09/14/24 tabs ibuprofen 600 mg tablet 600 mg PO TID PRN pain #90 tabs 08/06/22 09/14/24 Previous Rx's ?Medication ?Instructions ?Recorded acetaminophen 500 mg tablet 1,000 mg (2 x 500 mg) PO TID #90 08/06/22 tabs ibuprofen 600 mg tablet 600 mg PO TID PRN pain #90 tabs 08/06/22 Allergies Allergy/AdvReac Type Severity Reaction Status Date / Time No Known Allergies Allergy Verified 09/14/24 12:37 General Stated Complaint: Cellulitis SATHYA: 3 Review of Systems All systems reviewed & are unremarkable except as noted in HPI and below Constitutional Constitutional: Denies chills, Denies fever(s) and Denies weakness Cardiovascular Cardiovascular: Denies chest pain and Denies dyspnea Respiratory Respiratory: Denies cough and Denies dyspnea Gastrointestinal Gastrointestinal: Denies abdominal pain, Denies nausea and Denies vomiting Neurologic Neurologic: Denies weakness Psychiatric Psychiatric: Denies depression Exam Const General: no acute distress Orientation: alert HENMT Head: normal to inspection Ears: external ears normal General nose exam: external nose normal Mouth: moist mucous membranes Eyes General: appearance normal, both eyes and all related structures Neck Neck: normal visual inspection Resp Effort & Inspection: normal respiratory effort and able to speak in complete sentences Cardio Rate: regular rate Skin General skin exam: no rashes or lesions noted Neuro General: patient alert and patient oriented x3 Extrem General: full ROM and capillary refill normal Psych Mental Status: mental status grossly normal Course Vital Signs Vital signs: Vital Signs Temperature 36.7 C 09/14/24 12:29 Pulse 111 H 09/14/24 12:29 Respiratory Rate 18 09/14/24 12:29 Blood Pressure 139/87 09/14/24 12:29 Pulse Oximetry 95 09/14/24 12:29 Temperature 36.7 C 09/14/24 12:36 Temperature Source Oral 09/14/24 12:36 Pulse 111 H 09/14/24 12:36 Respiratory Rate 18 09/14/24 12:36 Blood Pressure 139/87 09/14/24 12:36 Blood Pressure Position Sitting 09/14/24 12:36 Pulse Oximetry 98 09/14/24 12:36 Oxygen Delivery Method Room Air 09/14/24 12:36 Oxygen Flow Rate 0 09/14/24 12:29 Medical Decision Making 48-year-old male comes in with 2 weeks of feeling as though he is a foreign body in his right middle finger. He says that he was working 2 weeks ago and got a thorn in his right middle finger. He went to [facility]. He says that they tried to remove it but or any remove the thorn and placed him on an antibiotic (7 days augmentin started 09/01). He says that the redness that he had resolved but he still has pain and feels like there is a foreign body in his right finger. He is well-appearing on exam. His right middle finger in the midportion of the finger on the palmar surface is swollen and he does have tenderness in the area. There is no erythema or discharge currently but he says that last night he did have a small line of pus that he pushed out of the wound. He is full range of motion and intact sensation. I suspect he has retained foreign body, will obtain x-rays to evaluate if he has any radiopaque foreign body. No visible foreign body on x-ray, I discussed the case with orthopedics and given it has been 2 weeks they do not recommend opening the wound and exploring it currently. They will follow-up with him on September 20 and I recommend performing warmth of the soaks of the finger. Patient is stable and is agreement with the plan. Differential Diagnosis Differential Diagnosis: Foreign body, infection Quality:SDOH Health Related Social Needs: No Data to Display PFSH All Active Problems (Updated 02/23/23 @ 15:33 by Trisha Andersen) Foreign body of right middle finger (Acute) Colonic mass (Acute) Screen for colon cancer (Acute) Status post arthroscopy of right knee (Acute) Depo-medrol injection: 11/17/2022 status post right knee arthroscopy with partial medial menisectomy and medial femoral chondroplasty DOS: 08/06/22 Prediabetes (Acute) Internal derangement of right knee (Acute) Tear of medial meniscus of right knee (Acute) Medical History (Updated 09/14/24 @ 13:48 by Reagan Jennings MD) Family history of colon cancer sister Overweight Neck mass 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 first he has heard of this Surgical History (Updated 02/23/23 @ 15:33 by Trisha Andersen) History of colonoscopy (~02/2023) polups removed Hx of arthroscopy of knee R knee H/O wisdom tooth extraction History of appendectomy 07/2012 History of ankle surgery R ankle, tendon work 04/25/19 Social History Smoking/Tobacco Use Status: Former Tobacco Use Quit Date: 05/04/05 Smoking risk assessment performed?: Yes Alcohol Intake: current Alcohol Intake frequency: 3 or more drinks per day Alcohol type: beer Drug use: Daily Substance use type: marijuana Details: alcohol: t-1, 3 beers, marijuana: t, couple puffs Housing: house Do you feel safe at home: Yes Do you feel safe in your relationship?: Yes Additional Social history: unable to assess privately 08/06/22-[facility] PAW Have you Been Recently Intoxicated or Drunk Within the Last 30 days?: No Have you Ever Experienced Previous Episodes of Alcohol Withdrawal?: No Have you ever Experienced Withdrawal Seizures?: No Have you ever Experienced Delirium Tremens(DT)s?: No Have you ever undergone Alcohol Rehabilitation Treatment (i.e, inpt ot outpatient treatment programs)?: No Have you ever Experienced Blackouts?: No Have you ever Combined Alcohol with other Downers within the last 90 days?: No Have you ever Combined Alcohol with any other Substance of Abuse during the last 90 days?: No Positive Blood Alcohol level on Presentation? [PCS.BAL]: No Evidence of Increased Autonomic Activity (i.e. HR>120, tremor, sweating, agitation, nausea)?: No Result: 0
--- NOTE | 2024-09-14 13:10 | DI.RAD_ITS ---
Exam(s) XR FINGER RT MIDDLE EXAM: XR FINGER RT MIDDLE CLINICAL HISTORY: ?foreign body. TECHNIQUE: 2D digital imaging was performed of the right finger. Three views were obtained. PA/AP, oblique, and lateral views were obtained. COMPARISON: No exams were available for comparison FINDINGS: BONES: No acute fracture is present. No bony destructive lesion is seen. Incidental note is made of a well-circumscribed lucent lesion within the cortex of the 3rd metacarpal. It has benign characteri stics. No cortical disruption or periosteal reaction is seen. JOINTS: No dislocation present. SOFT TISSUE: There is mild soft tissue swelling anteriorly at the level of the middle phalanx of the right middle finger. No soft tissue gas or radiopaque foreign body is identified. IMPRESSION: Soft tissue swelling seen in the right 3rd finger but no soft tissue gas or radiopaque foreign body i s seen. DATA REPOSITORY: RADIATION DOSE DELIVERED:
--- NOTE | 2024-09-14 13:50 | NUR.NOTE ---
per Hiliary, [facility] 1 week of warm sudsy soaks, September 20 @ [address] Jennings aware. Nursing Note:
== END 2024-09-14 13:54 | disposition home or self-care (01) ==
PROVIDERS: Emergency Provider Emergency Medicine; PCP Physician Assistant
DX: S60.452A Superficial foreign body of right middle finger, initial encounter (principal); X58.XXXA Exposure to other specified factors, initial encounter
CPT/HCPCS: 99283 ×2; 73140